=== PATIENT | male | born 1990 | race Caucasian/White ===

== ENCOUNTER 2025-05-31 11:43 | Outpatient (CLI) | payer OTHER, SELFPAY ==
--- NOTE | 2025-05-31 11:56 | XR_ITS ---
WS: [id number] Exam: XR lumbar spine 6V w f/e [id number] Date/Time of Exam: 05/31/2025 11:57 AM Reason For Exam: M54.16 - Radiculopathy, lumbar region DLP: No fracture or malalignment. Disc spaces are relatively well-maintained. Posterior elements are intact. No flexion or extension instability. XR/XR lumbar spine 6V w f/e [id number] IMPRESSION: 1. Unremarkable lumbar spine study.
== END 2025-05-31 11:44 | disposition home or self-care (01) ==
PROVIDERS: Family Provider Nurse Practitioner Family; PCP Nurse Practitioner Family; Visit Provider Nurse Practitioner Family
DX: M54.16 Radiculopathy, lumbar region (principal); M54.32 Sciatica, left side
CPT/HCPCS: 72114

== ENCOUNTER 2025-06-28 08:44 | Outpatient (CLI) | payer OTHER, SELFPAY ==
--- NOTE | 2025-06-28 08:45 | MR_ITS ---
WS: [id number] MRI LUMBAR SPINE NONCONTRAST HISTORY: M54.16 - Radiculopathy, lumbar region COMPARISON: None available. TECHNIQUE: Sagittal and axial multisequence imaging is submitted. Small central T6-7 disc protrusion. Mild increase in the lumbar lordosis. Posterior alignment is normal. No marrow edema or acute fracture. Disc spaces and vertebral body heights are well-preserved. Conus terminates normally at L1-2 disc level. L1-L2: Normal. L2-L3: Mild ligamentum flavum hypertrophy. L3-L4: Mild disc bulging and ligamentum flavum and facet arthritis. No significant stenosis. Small amount of fluid in the facet joints. L4-L5: Moderate annular disc bulge with osteophytic ridging. Mild disc bulging contacts the traversing L5 nerve roots in the subarticular recesses. Very mild subarticular recess and foraminal stenosis. Mild increased signal in the soft tissues surrounding the spinous process of L4-5. There is a small 5 mm cyst near the LEFT facet joint. L5-S1: Mild annular disc bulging with moderate ligamentum flavum and facet arthritis. Minimal foraminal narrowing. Paravertebral soft tissues are normal. MR/MR lumbar spine wo con* [id number] IMPRESSION: 1. No high-grade central or foraminal stenosis. 2. Disc bulging with central disc protrusion at L4-5 with mild contact on the traversing L5 nerve roots. Mild subarticular recess and foraminal stenosis. 3. Mild increased edema surrounding the L4-5 spinous processes and facet joint s. Mild synovitis. 4. Minimal foraminal narrowing at L5-S1.
== END 2025-06-28 08:45 | disposition home or self-care (01) ==
PROVIDERS: Family Provider Nurse Practitioner Family; PCP Nurse Practitioner Family; Visit Provider Nurse Practitioner Family
DX: M54.16 Radiculopathy, lumbar region (principal); M54.31 Sciatica, right side; M54.32 Sciatica, left side; M51.369 Other intervertebral disc degeneration, lumbar region without mention of lumbar back pain or lower extremity pain; M48.061 Spinal stenosis, lumbar region without neurogenic claudication; R60.0 Localized edema; M65.88 Other synovitis and tenosynovitis, other site; M51.24 Other intervertebral disc displacement, thoracic region; R93.7 Abnormal findings on diagnostic imaging of other parts of musculoskeletal system; M24.28 Disorder of ligament, vertebrae; M47.896 Other spondylosis, lumbar region; R93.89 Abnormal findings on diagnostic imaging of other specified body structures; M51.379 Other intervertebral disc degeneration, lumbosacral region without mention of lumbar back pain or lower extremity pain; M47.897 Other spondylosis, lumbosacral region
CPT/HCPCS: 72148

== ENCOUNTER → 2025-07-03 08:57 | Outpatient (BNVA) | payer OTHER, SELFPAY | PROVIDERS: Family Provider Nurse Practitioner Family; PCP Nurse Practitioner Family; Visit Provider Nurse Practitioner Family | DX: Z00.00 Encounter for general adult medical examination without abnormal findings (principal); Z13.6 Encounter for screening for cardiovascular disorders; Z79.899 Other long term (current) drug therapy | CPT/HCPCS: 80053; 80061; 81003; 83036; 84443; 85025 ==

== ENCOUNTER → 2025-07-05 09:10 | Outpatient (BNVA) | payer OTHER, SELFPAY | PROVIDERS: Family Provider Nurse Practitioner Family; PCP Nurse Practitioner Family; Visit Provider Nurse Practitioner Family | DX: R79.89 Other specified abnormal findings of blood chemistry (principal) | CPT/HCPCS: 84439; 86376 ==